=== PATIENT | male | born 1945 | race African-American/Black ===

== ENCOUNTER 2016-04-25 10:23 | Inpatient (IN) | payer OTHER ==
[2016-04-25 10:54] VITALS: BMI 32.1
--- NOTE | 2016-04-25 12:08 | HP ---
CIWA Score - CIWA Score Nausea/Vomitin-No Nausea/No Vomiting Muscle Tremors: 4-Moderate,w/Arms Extend Anxiety: 4-Mod. Anxious/Guarded Agitation: 4-Moderately Restless Paroxysmal Sweats: 1-Minimal Palms Moist Orientation: 0-Oriented Tacttile Disturbances: 3-Moderate Itch/Numb/Burn Auditory Disturbances: 0-None Visual Disturbances: 0-None Headache: 0-None Present CIWA-Ar Total Score: 16 Admission ROS BHS - HPI Chief Complaint: DETOX TX FOR ALCOHOL DEPENDENCE Allergies/Adverse Reactions: Allergies Allergy/AdvReac Type Severity Reaction Status Date / Time No Known Allergies Allergy Verified 04/25/16 11:11 History of Present Illness: 70 Y/O AA/MALE WITH A HX OF ALCOHOL AND COCAINE DEPENDENCE SEEKING DETOX [place] Exam Limitations: No Limitations - Ebola screening Have you traveled outside of the country in the last 21 days: No Have you had contact with anyone from an Ebola affected area: No Have you been sick,other than usual withdrawal symptoms: No Do you have a fever: No - Review of Systems Constitutional: Changes in sleep EENT: reports: Blurred Vision (WEARS GLASSES), Tearing, Nose Congestion, Dental Problems (UPPER/LOWER DENTURES; LOST BOTTOM DENTURES.) Respiratory: reports: Shortness of Breath (HX ASTHMA), Wheezing Cardiac: reports: No Symptoms Reported GI: reports: Constipated, Abdominal cramping : reports: No Symptoms Reported Musculoskeletal: reports: Back Pain, Joint Pain, Muscle Pain Integumentary: reports: No Symptoms Reported Neuro: reports: Numbness (LEFT ARM), Tingling, Tremors Endocrine: reports: No Symptoms Reported Hematology: reports: No Symptoms Reported Psychiatric: reports: Orientated x3, Anxious Other Systems: Reviewed and Negative Patient History - Patient Medical History Hx Anemia: No Hx Asthma: Yes (MDI) Hx Chronic Obstructive Pulmonary Disease (COPD): No Hx Cancer: No Hx Cardiac Disorders: No Hx Congestive Heart Failure: No Hx Hypertension: Yes (on meds.) Hx Hypercholesterolemia: No Hx Pacemaker: No HX Cerebrovascular Accident: No Hx Seizures: No Hx Dementia: No Hx Diabetes: No Hx Gastrointestinal Disorders: Yes (GERD ) Hx Liver Disease: No Hx Genitourinary Disorders: No Hx Sexually Transmitted Disorders: No Hx Renal Disease (ESRD): No Hx Thyroid Disease: No Hx Human Immunodeficiency Virus (HIV): Yes (SINCE 1990; ON MEDS; HX ORAL THRUSH. ) Hx Hepatitis C: Yes (TREATED WITH HARVONI ;UNDETECTABLE) Hx Depression: Yes Hx Suicide Attempt: No (DENIES) Hx Bipolar Disorder: No Hx Schizophrenia: No - Patient Surgical History Past Surgical History: Yes Hx Neurologic Surgery: No Hx Cataract Extraction: No Hx Cardiac Surgery: No Hx Lung Surgery: No Hx Breast Surgery: No Hx Breast Biopsy: No Hx Abdominal Surgery: No Hx Appendectomy: No Hx Cholecystectomy: No Hx Genitourinary Surgery: No Hx Section: No Hx Orthopedic Surgery: Yes (left leg in 1980) Anesthesia Reaction: No - PPD History Previous Implant?: Yes Documented Results: Positive w/proof Implanted On Prior [facility] Admission?: No Results: CXR neg PPD to be Administered?: No - Reproductive History Patient is a Female of Child Bearing Age (11 -55 yrs old): No (MALE) - Smoking Cessation Smoking history: Never smoked Have you smoked in the past 12 months: No Hx Chewing Tobacco Use: No - Substance & Tx. History Hx Alcohol Use: Yes (BEER) Hx Substance Use: Yes (HEROIN/COCAINE) Substance Use Type: Alcohol, Cocaine, Heroin Hx Substance Use Treatment: Yes ([facility]-DETOX) - Substances Abused Alcohol Route: Oral Frequency: Daily Amount used: 3-4 22 OZ BEERS Age of first use: 32 Date of Last Use: 04/24/16 Cocaine Route: Smoking Frequency: Daily Amount used: $50 AND UP Age of first use: 25 Date of Last Use: 04/24/16 Heroin Route: Inhalation Frequency: 1-2 times per week Amount used: 4-6 BAGS Age of first use: 21 Date of Last Use: 04/23/16 Family Disease History - Family Disease History Family Disease History: CA: Mother (COLON CANCER ), Other: Father ( ) Admission Physical Exam BHS - Vital Signs Vital Signs: Vital Signs - 24 hr 04/25/16 10:52 Temperature 97.2 F L Pulse Rate 68 Respiratory 18 Rate Blood Pressure 144/77 - Physical General Appearance: Yes: Moderate Distress, Irritable, Anxious HEENTM: Yes: EOMI, Normocephalic, MICHAEL, Pharynx Normal Respiratory: Yes: Chest Non-Tender, Lungs Clear, Normal Breath Sounds, No Respiratory Distress Neck: Yes: Supple, Trachea in good position Breast: Yes: Breast Exam Deferred Cardiology: Yes: Regular Rhythm, Regular Rate, S1, S2 Abdominal: Yes: Normal Bowel Sounds, Non Tender, Soft, Protuberent Genitourinary: Yes: Other (N/C) Back: Yes: Within Normal Limits Musculoskeletal: Yes: full range of Motion, Gait Steady Extremities: Yes: Normal Range of Motion, Non-Tender, Tremors 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 (2) Asthma Current Visit: Yes Status: Chronic Qualifiers: Asthma severity: mild intermittent Asthma complication type: uncomplicated Qualified Code(s): J45.20 - Mild intermittent asthma, uncomplicated (3) GERD (gastroesophageal reflux disease) Current Visit: Yes Status: Chronic Qualifiers: Esophagitis presence: without esophagitis Qualified Code(s): K21.9 - Gastro-esophageal reflux disease without esophagitis Comment: . (4) HIV (human immunodeficiency virus infection) Current Visit: Yes Status: Chronic Comment: . (5) History of hepatitis C Current Visit: Yes Status: Resolved Comment: TREATED WITH HARVONI AND PT STATES UNDETECTABLE. (6) Hypertension Current Visit: Yes Status: Chronic Qualifiers: Hypertension type: essential hypertension Qualified Code(s): I10 - Essential (primary) hypertension Comment: . 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
[2016-04-25] MEDS ORDERED: MAG HYDROX/AL HYDROX/SIMETH 30 ML UNIT-DOSE CUP PO PRN (12:22)
[2016-04-25] MEDS ORDERED: MAGNESIUM CITRATE 300 ML BOTTLE PO PRN (12:22)
[2016-04-25] MEDS ORDERED: ACETAMINOPHEN 325 MG TABLET (FP) PO PRN (12:22)
[2016-04-25] MEDS ORDERED: LOPERAMIDE HCL 2 MG CAPSULE PO PRN (12:22)
[2016-04-25] MEDS ORDERED: chlordiazePOXIDE HCL 25 MG CAPSULE PO PRN (12:22)
[2016-04-25] MEDS ORDERED: guaiFENesin/D-METHORPHAN HB 10 ML UNIT-DOSE CUPS PO PRN (12:22)
[2016-04-25] MEDS ORDERED: P-EPHED 60MG/TRIPROLIDI 2.5MG TABLET PO PRN (12:22)
[2016-04-25] MEDS ORDERED: hydrOXYzine PAMOATE 25 MG CAPSULE (FP) PO PRN (12:22)
[2016-04-25] MEDS ORDERED: MAGNESIUM HYDROX 2400MG/30ML ORAL SUSPENSION 30 ML CUP PO PRN (12:22)
[2016-04-25] MEDS ORDERED: IBUPROFEN 400 MG TABLET (FP) PO PRN (12:22)
[2016-04-25] MEDS ORDERED: ALBUTEROL SO4 6.7 GM HFA INHALER IH PRN (12:25)
[2016-04-25] MEDS ORDERED: chlordiazePOXIDE HCL 25 MG CAPSULE PO ONE (12:50)
[2016-04-25] MEDS: chlordiazePOXIDE HCL 25 MG CAPSULE PO SCH ×2 (17:32→22:26)
[2016-04-25] MEDS ORDERED: TAMSULOSIN HCL 0.4 MG CAP.ER.24H (FP) PO SCH (22:00)
[2016-04-25] MEDS: THIAMINE HCL 100 MG TABLET (FP) PO SCH (22:24)
[2016-04-25] MEDS: FLUTICASONE PROP 0.05% 16 GM NASAL SPRAY NS SCH (22:24)
[2016-04-25] MEDS: MONTELUKAST NA 10 MG TABLET PO SCH (22:25)
[2016-04-25] MEDS: diphenhydrAMINE HCL 50 MG CAPSULE PO PRN (22:26)
[2016-04-26] MEDS: chlordiazePOXIDE HCL 25 MG CAPSULE PO SCH ×4 (05:40→22:17)
[2016-04-26] MEDS ORDERED: METHADONE HCL 40 MG DISPERSABLE TABLET PO ONE (09:33)
[2016-04-26] MEDS ORDERED: PATIENT'S OWN MEDICATION (NON-FORMULARY) (Calcium Carb/Vitamin D3/Vit K1 [Calcium + D Soft PO SCH (10:00)
[2016-04-26 10:12] LABS: URINE APPEARANCE CLEAR; URINE BILIRUBIN NEGATIVE (NEGATIVE); URINE BLOOD NEGATIVE (NEGATIVE); URINE COLOR LTYELLOW; URINE GLUCOSE (UA) NEGATIVE (NEGATIVE); URINE KETONE NEGATIVE (NEGATIVE); URINE LEUK ESTERASE NEGATIVE (NEGATIVE); URINE NITRITE NEGATIVE (NEGATIVE); URINE PROTEIN NEGATIVE (NEGATIVE); URINE UROBILINOGEN NEGATIVE E.U./dl (0.2-1.0)
[2016-04-26 10:14] LABS: ALBUMIN 3.5 g/dl (3.4-5.0); ANION GAP 10 (8-16); CALCIUM 8.6 mg/dL (8.5-10.1); CO2 30 mmol/L (21-32); GLUCOSE,RANDOM 91 mg/dL (74-106); SGOT/AST 19 U/L (15-37); SGPT/ALT 18 U/L (12-78)
[2016-04-26 10:15] LABS: ALK PHOS 89 U/L (45-117); BILIRUBIN,TOTAL 0.3 mg/dL (0.2-1.0); CREATININE 0.8 mg/dL (0.7-1.3); TOT PROT 6.7 g/dl (6.4-8.2)
--- NOTE | 2016-04-26 10:24 | CONSULT ---
[facility] Psychiatric Consult - Data Date of interview: 04/26/16 Admission source: [facility] Identifying data: This is 70 years old male with no psychiatric hospitalization history intoxciated with: Heroin, Cocaine and Alcohol Substance Abuse History: - Smoking Cessation. Smoking history: Never smoked. Have you smoked in the past 12 months: No. Hx Chewing Tobacco Use: No. - Substance & Tx. History. Hx Alcohol Use: Yes (BEER). Hx Substance Use: Yes ( HEROIN/COCAINE). Substance Use Type: Alcohol, Cocaine, Heroin. Hx Substance Use Treatment: Yes ([facility]-DETOX). - Substances Abused. Alcohol. Route: Oral. Frequency: Daily. Amount used: 3-4 22 OZ BEERS. Age of first use: 32. Date of Last Use: 04/24/16. Cocaine. Route: Smoking. Frequency: Daily. Amount used: $50 AND UP. Age of first use: 25. Date of Last Use: 04/24/16. * * Heroin. Route: Inhalation. Frequency: 1-2 times per week. Amount used: 4-6 BAGS. Age of first use: 21. Date of Last Use: 04/23/16 Medical History: IVC Filter placement history, Gastritis history. BPH, GERD, HEP C, HIV Psychiatric History: Denies, as per comp[uter has been on Zoloft 100mg poqd, refusing to restart Physical/Sexual Abuse/Trauma History: Denies, unclear Additional Comment: Observation Mental Status Exam - Mental Status Exam Alert and Oriented to: Person Cognitive Function: Fair Patient Appearance: Unkempt Mood: Nervous, Withdrawn Affect: Inappropriate Patient Behavior: Suspicious, Distractible, Talkative Speech Pattern: Excessive Voice Loudness: Mildly Loud Thought Process: Circumstantial Thought Disorder: Being Controlled Hallucinations: Denies Suicidal Ideation: Denies Homicidal Ideation: Denies Insight/Judgement: Fair Sleep: Difficulty falling asleep Appetite: Weight gain Muscle strength/Tone: Mild Hypertonicity Gait/Station: Shuffling Additional Comments: Observation. Detox Care [facility] Psychiatric Findings - Problem List ([place] 1, 2,3) (1) Alcohol dependence with uncomplicated withdrawal Current Visit: Yes Status: Acute (2) Cocaine dependence, uncomplicated Current Visit: Yes Status: Acute (3) Drug-induced mood disorder Current Visit: Yes Status: Acute - Initial Treatment Plan Initial Treatment Plan: Observation. Detox Care [facility]
[2016-04-26 10:25] LABS: MCH 27.3 pg (25.7-33.7); MCHC 33.3 g/dl (32.0-35.9); MEAN CELL VOLUME 81.9 fl (80-96); MEAN PLT VOLUME 8.8 fl (7.5-11.1); PLATELET COUNT 216 K/MM3 (134-434); RDW 14.7 % (11.9-15.9); WHITE BLOOD COUNT 9.7 K/mm3 (4.0-10.0)
[2016-04-26] MEDS: CALCIUM 250MG/VIT-D 125 UNITS 1 COMBO TABLET PO SCH (10:40)
[2016-04-26] MEDS: PANTOPRAZOLE 40 MG TABLET (FP) PO SCH (10:40)
[2016-04-26] MEDS: LISINOPRIL 5 MG TABLET (FP) PO SCH (10:40)
[2016-04-26] MEDS: HYDROCHLOROTHIAZIDE 25 MG TABLET (FP) PO SCH (10:40)
[2016-04-26] MEDS: FLUTICASONE PROP 0.05% 16 GM NASAL SPRAY NS SCH ×2 (10:40→22:18)
[2016-04-26] MEDS: RITONAVIR 100 MG TABLET PO SCH (10:40)
[2016-04-26] MEDS: DARUNAVIR ETHANOLATE 800 MG TAB PO SCH (10:40)
[2016-04-26] MEDS: PRENATAL VITAMINS W/ FOLIC ACID TABLET (FP) PO SCH (10:40)
[2016-04-26] MEDS: EMTRICITABINE 200MG/TENOFOVIR 300MG PO SCH (10:41)
--- NOTE | 2016-04-26 10:49 | PN ---
[facility] CIWA - CIWA Score Nausea/Vomitin-No Nausea/No Vomiting Muscle Tremors: 4-Moderate,w/Arms Extend Anxiety: 4-Mod. Anxious/Guarded Agitation: 4-Moderately Restless Paroxysmal Sweats: 1-Minimal Palms Moist Orientation: 0-Oriented Tacttile Disturbances: 3-Moderate Itch/Numb/Burn Auditory Disturbances: 0-None Visual Disturbances: 0-None Headache: 0-None Present CIWA-Ar Total Score: 16 BHS Progress Note (SOAP) Subjective: ANXIETY,TREMORS,SWEATS, INTERMITTENT SLEEP Objective: 04/26/16 10:49 Vital Signs Temperature 96.8 F L 04/26/16 10:18 Pulse Rate 66 04/26/16 10:18 Respiratory Rate 18 04/26/16 10:18 Blood Pressure 148/77 04/26/16 10:18 O2 Sat by Pulse Oximetry (%) Laboratory Last Values WBC 9.7 K/mm3 (4.0-10.0) D 04/26/16 05:45 RBC 4.38 M/mm3 (4.00-5.60) 04/26/16 05:45 Hgb 12.0 GM/dL (11.7-16.9) D 04/26/16 05:45 Hct 35.9 % (35.4-49) D 04/26/16 05:45 MCV 81.9 fl (80-96) 04/26/16 05:45 MCHC 33.3 g/dl (32.0-35.9) 04/26/16 05:45 RDW 14.7 % (11.9-15.9) 04/26/16 05:45 Plt Count 216 K/MM3 (134-434) D 04/26/16 05:45 MPV 8.8 fl (7.5-11.1) 04/26/16 05:45 Sodium 135 mmol/L (136-145) L 04/26/16 05:45 Potassium 3.5 mmol/L (3.5-5.1) 04/26/16 05:45 Chloride 95 mmol/L (98-107) L 04/26/16 05:45 Carbon Dioxide 30 mmol/L (21-32) 04/26/16 05:45 Anion Gap 10 (8-16) 04/26/16 05:45 BUN 12 mg/dL (7-18) 04/26/16 05:45 Creatinine 0.8 mg/dL (0.7-1.3) D 04/26/16 05:45 Creat Clearance w eGFR > 60 (>60) 04/26/16 05:45 Random Glucose 91 mg/dL (74-106) D 04/26/16 05:45 Calcium 8.6 mg/dL (8.5-10.1) 04/26/16 05:45 Total Bilirubin 0.3 mg/dL (0.2-1.0) D 04/26/16 05:45 AST 19 U/L (15-37) 04/26/16 05:45 ALT 18 U/L (12-78) D 04/26/16 05:45 Alkaline Phosphatase 89 U/L (45-117) D 04/26/16 05:45 Total Protein 6.7 g/dl (6.4-8.2) 04/26/16 05:45 Albumin 3.5 g/dl (3.4-5.0) 04/26/16 05:45 Urine Color Ltyellow 04/26/16 08:00 Urine Appearance Clear 04/26/16 08:00 Urine pH 6.0 (5.0-8.0) 04/26/16 08:00 Ur Specific [place] 1.008 (1.001-1.035) 04/26/16 08:00 Urine Protein Negative (NEGATIVE) 04/26/16 08:00 Urine Glucose (UA) Negative (NEGATIVE) 04/26/16 08:00 Urine Ketones Negative (NEGATIVE) 04/26/16 08:00 Urine Blood Negative (NEGATIVE) 04/26/16 08:00 Urine Nitrite Negative (NEGATIVE) 04/26/16 08:00 Urine Bilirubin Negative (NEGATIVE) 04/26/16 08:00 Urine Urobilinogen Negative E.U./dl (0.2-1.0) 04/26/16 08:00 Ur Leukocyte Esterase Negative (NEGATIVE) 04/26/16 08:00 Assessment: 04/26/16 10:49 WITHDRAWAL SX Plan: CONTINUE DETOX
--- NOTE | 2016-04-26 16:57 | EKG ---
Test Reason : Blood Pressure : / mmHG Vent. Rate : 064 BPM Atrial Rate : 064 BPM P-R Int : 186 ms QRS Dur : 102 ms QT Int : 416 ms P-R-T Axes : 014 014 021 degrees QTc Int : 429 ms POOR DATA QUALITY, INTERPRETATION MAY BE ADVERSELY AFFECTED NORMAL SINUS RHYTHM MINIMAL VOLTAGE CRITERIA FOR LVH, MAY BE NORMAL VARIANT BORDERLINE ECG NO PREVIOUS ECGS AVAILABLE Confirmed by ABDELRAHMAN BARRERA, JESSIE ([id number]) on 04/26/2016 4:57:05 PM Referred By: Eliazar Hicks Confirmed By:JESSIE QUICK MD
[2016-04-26] MEDS: THIAMINE HCL 100 MG TABLET (FP) PO SCH (22:17)
[2016-04-26] MEDS: MONTELUKAST NA 10 MG TABLET PO SCH (22:17)
[2016-04-27] MEDS: chlordiazePOXIDE HCL 25 MG CAPSULE PO SCH ×2 (05:30→10:51)
[2016-04-27] MEDS: METHADONE HCL 40 MG DISPERSABLE TABLET PO SCH (05:30)
[2016-04-27] MEDS: MENTHOL/PHENOL 1 EACH UD MM PRN (05:31)
[2016-04-27] MEDS: DARUNAVIR ETHANOLATE 800 MG TAB PO SCH (10:52)
[2016-04-27] MEDS: EMTRICITABINE 200MG/TENOFOVIR 300MG PO SCH (10:52)
[2016-04-27] MEDS: RITONAVIR 100 MG TABLET PO SCH (10:52)
[2016-04-27] MEDS: LISINOPRIL 5 MG TABLET (FP) PO SCH (10:52)
[2016-04-27] MEDS: HYDROCHLOROTHIAZIDE 25 MG TABLET (FP) PO SCH (10:52)
[2016-04-27] MEDS: PANTOPRAZOLE 40 MG TABLET (FP) PO SCH (10:52)
[2016-04-27] MEDS: PRENATAL VITAMINS W/ FOLIC ACID TABLET (FP) PO SCH (10:52)
[2016-04-27] MEDS: FLUTICASONE PROP 0.05% 16 GM NASAL SPRAY NS SCH ×2 (10:53→22:22)
[2016-04-27] MEDS: CALCIUM 250MG/VIT-D 125 UNITS 1 COMBO TABLET PO SCH (10:53)
--- NOTE | 2016-04-27 11:04 | PN ---
[facility] CIWA - CIWA Score Nausea/Vomitin-No Nausea/No Vomiting Muscle Tremors: 4-Moderate,w/Arms Extend Anxiety: 4-Mod. Anxious/Guarded Agitation: 4-Moderately Restless Paroxysmal Sweats: 1-Minimal Palms Moist Orientation: 0-Oriented Tacttile Disturbances: 3-Moderate Itch/Numb/Burn Auditory Disturbances: 0-None Visual Disturbances: 0-None Headache: 0-None Present CIWA-Ar Total Score: 16 BHS Progress Note (SOAP) Subjective: ANXIETY,SWEATS,TREMORS. Objective: 04/27/16 11:03 Vital Signs Temperature 97.0 F L 04/27/16 09:34 Pulse Rate 66 04/27/16 09:34 Respiratory Rate 18 04/27/16 09:34 Blood Pressure 138/82 04/27/16 09:34 O2 Sat by Pulse Oximetry (%) Laboratory Last Values WBC 9.7 K/mm3 (4.0-10.0) D 04/26/16 05:45 RBC 4.38 M/mm3 (4.00-5.60) 04/26/16 05:45 Hgb 12.0 GM/dL (11.7-16.9) D 04/26/16 05:45 Hct 35.9 % (35.4-49) D 04/26/16 05:45 MCV 81.9 fl (80-96) 04/26/16 05:45 MCHC 33.3 g/dl (32.0-35.9) 04/26/16 05:45 RDW 14.7 % (11.9-15.9) 04/26/16 05:45 Plt Count 216 K/MM3 (134-434) D 04/26/16 05:45 MPV 8.8 fl (7.5-11.1) 04/26/16 05:45 Sodium 135 mmol/L (136-145) L 04/26/16 05:45 Potassium 3.5 mmol/L (3.5-5.1) 04/26/16 05:45 Chloride 95 mmol/L (98-107) L 04/26/16 05:45 Carbon Dioxide 30 mmol/L (21-32) 04/26/16 05:45 Anion Gap 10 (8-16) 04/26/16 05:45 BUN 12 mg/dL (7-18) 04/26/16 05:45 Creatinine 0.8 mg/dL (0.7-1.3) D 04/26/16 05:45 Creat Clearance w eGFR > 60 (>60) 04/26/16 05:45 Random Glucose 91 mg/dL (74-106) D 04/26/16 05:45 Calcium 8.6 mg/dL (8.5-10.1) 04/26/16 05:45 Total Bilirubin 0.3 mg/dL (0.2-1.0) D 04/26/16 05:45 AST 19 U/L (15-37) 04/26/16 05:45 ALT 18 U/L (12-78) D 04/26/16 05:45 Alkaline Phosphatase 89 U/L (45-117) D 04/26/16 05:45 Total Protein 6.7 g/dl (6.4-8.2) 04/26/16 05:45 Albumin 3.5 g/dl (3.4-5.0) 04/26/16 05:45 Urine Color Ltyellow 04/26/16 08:00 Urine Appearance Clear 04/26/16 08:00 Urine pH 6.0 (5.0-8.0) 04/26/16 08:00 Ur Specific [place] 1.008 (1.001-1.035) 04/26/16 08:00 Urine Protein Negative (NEGATIVE) 04/26/16 08:00 Urine Glucose (UA) Negative (NEGATIVE) 04/26/16 08:00 Urine Ketones Negative (NEGATIVE) 04/26/16 08:00 Urine Blood Negative (NEGATIVE) 04/26/16 08:00 Urine Nitrite Negative (NEGATIVE) 04/26/16 08:00 Urine Bilirubin Negative (NEGATIVE) 04/26/16 08:00 Urine Urobilinogen Negative E.U./dl (0.2-1.0) 04/26/16 08:00 Ur Leukocyte Esterase Negative (NEGATIVE) 04/26/16 08:00 RPR Titer Nonreactive (NONREACTIVE) 04/26/16 05:45 Assessment: 04/27/16 11:03 WITHDRAWAL SX Plan: CONTINUE DETOX
[2016-04-27] MEDS: chlordiazePOXIDE 5 MG CAPSULE PO SCH ×2 (17:00→22:22)
[2016-04-27] MEDS: MONTELUKAST NA 10 MG TABLET PO SCH (22:22)
[2016-04-27] MEDS: THIAMINE HCL 100 MG TABLET (FP) PO SCH (22:22)
[2016-04-27] MEDS: diphenhydrAMINE HCL 50 MG CAPSULE PO PRN (22:23)
[2016-04-28] MEDS: chlordiazePOXIDE 5 MG CAPSULE PO SCH ×2 (05:36→10:40)
[2016-04-28] MEDS: METHADONE HCL 40 MG DISPERSABLE TABLET PO SCH (05:36)
[2016-04-28] MEDS: MENTHOL/PHENOL 1 EACH UD MM PRN ×4 (05:39→22:16)
[2016-04-28] MEDS: PRENATAL VITAMINS W/ FOLIC ACID TABLET (FP) PO SCH (10:40)
[2016-04-28] MEDS: HYDROCHLOROTHIAZIDE 25 MG TABLET (FP) PO SCH (10:40)
[2016-04-28] MEDS: DARUNAVIR ETHANOLATE 800 MG TAB PO SCH (10:40)
[2016-04-28] MEDS: PANTOPRAZOLE 40 MG TABLET (FP) PO SCH (10:40)
[2016-04-28] MEDS: LISINOPRIL 5 MG TABLET (FP) PO SCH (10:40)
[2016-04-28] MEDS: EMTRICITABINE 200MG/TENOFOVIR 300MG PO SCH (10:41)
[2016-04-28] MEDS: FLUTICASONE PROP 0.05% 16 GM NASAL SPRAY NS SCH ×2 (10:41→22:13)
[2016-04-28] MEDS: RITONAVIR 100 MG TABLET PO SCH (10:42)
[2016-04-28] MEDS: CALCIUM 250MG/VIT-D 125 UNITS 1 COMBO TABLET PO SCH (10:42)
--- NOTE | 2016-04-28 11:39 | PN ---
BHS Progress Note (SOAP) Subjective: back pain, cough Objective: 04/28/16 11:36 Vital Signs - 8 hr 04/28/16 04/28/16 06:31 10:59 Temperature 98.1 F 95.8 F L Pulse Rate 64 68 Respiratory 16 19 Rate Blood Pressure 134/88 136/84 Laboratory Last Values WBC 9.7 K/mm3 (4.0-10.0) D 04/26/16 05:45 RBC 4.38 M/mm3 (4.00-5.60) 04/26/16 05:45 Hgb 12.0 GM/dL (11.7-16.9) D 04/26/16 05:45 Hct 35.9 % (35.4-49) D 04/26/16 05:45 MCV 81.9 fl (80-96) 04/26/16 05:45 MCHC 33.3 g/dl (32.0-35.9) 04/26/16 05:45 RDW 14.7 % (11.9-15.9) 04/26/16 05:45 Plt Count 216 K/MM3 (134-434) D 04/26/16 05:45 MPV 8.8 fl (7.5-11.1) 04/26/16 05:45 Sodium 135 mmol/L (136-145) L 04/26/16 05:45 Potassium 3.5 mmol/L (3.5-5.1) 04/26/16 05:45 Chloride 95 mmol/L (98-107) L 04/26/16 05:45 Carbon Dioxide 30 mmol/L (21-32) 04/26/16 05:45 Anion Gap 10 (8-16) 04/26/16 05:45 BUN 12 mg/dL (7-18) 04/26/16 05:45 Creatinine 0.8 mg/dL (0.7-1.3) D 04/26/16 05:45 Creat Clearance w eGFR > 60 (>60) 04/26/16 05:45 Random Glucose 91 mg/dL (74-106) D 04/26/16 05:45 Calcium 8.6 mg/dL (8.5-10.1) 04/26/16 05:45 Total Bilirubin 0.3 mg/dL (0.2-1.0) D 04/26/16 05:45 AST 19 U/L (15-37) 04/26/16 05:45 ALT 18 U/L (12-78) D 04/26/16 05:45 Alkaline Phosphatase 89 U/L (45-117) D 04/26/16 05:45 Total Protein 6.7 g/dl (6.4-8.2) 04/26/16 05:45 Albumin 3.5 g/dl (3.4-5.0) 04/26/16 05:45 Urine Color Ltyellow 04/26/16 08:00 Urine Appearance Clear 04/26/16 08:00 Urine pH 6.0 (5.0-8.0) 04/26/16 08:00 Ur Specific [place] 1.008 (1.001-1.035) 04/26/16 08:00 Urine Protein Negative (NEGATIVE) 04/26/16 08:00 Urine Glucose (UA) Negative (NEGATIVE) 04/26/16 08:00 Urine Ketones Negative (NEGATIVE) 04/26/16 08:00 Urine Blood Negative (NEGATIVE) 04/26/16 08:00 Urine Nitrite Negative (NEGATIVE) 04/26/16 08:00 Urine Bilirubin Negative (NEGATIVE) 04/26/16 08:00 Urine Urobilinogen Negative E.U./dl (0.2-1.0) 04/26/16 08:00 Ur Leukocyte Esterase Negative (NEGATIVE) 04/26/16 08:00 RPR Titer Nonreactive (NONREACTIVE) 04/26/16 05:45 Labs noted Lungs clear, no wheezes or crackles Assessment: 04/28/16 11:37 withdrawal sx, asthma Plan: continue detox, continue nebulizer treatments
[2016-04-28] MEDS: chlordiazePOXIDE HCL 10 MG CAPSULE PO SCH ×2 (17:18→22:14)
[2016-04-28] MEDS: THIAMINE HCL 100 MG TABLET (FP) PO SCH (22:13)
[2016-04-28] MEDS: diphenhydrAMINE HCL 50 MG CAPSULE PO PRN (22:14)
[2016-04-28] MEDS: MONTELUKAST NA 10 MG TABLET PO SCH (22:14)
[2016-04-29] MEDS: METHADONE HCL 40 MG DISPERSABLE TABLET PO SCH (05:13)
[2016-04-29] MEDS: chlordiazePOXIDE HCL 10 MG CAPSULE PO SCH (05:13)
[2016-04-29 06:30] VITALS: BP 136/84; PULSE 67; TEMP 97.4
--- NOTE | 2016-04-29 11:09 | DS ---
[facility] Detox Discharge Summary Admission Date: 04/25/16 Discharge Date: 04/29/16 - History Present History: Alcohol Dependence, Cocaine Dependence, Opioid Dependence, MMTP Pertinent Past History: Asthma Hypertension GERD HIV Hep - Treated, Undected - Physical Exam Results Vital Signs: Vital Signs Temperature 97.4 F L 04/29/16 06:27 Pulse Rate 67 04/29/16 06:27 Respiratory Rate 16 04/29/16 06:27 Blood Pressure 136/84 04/29/16 06:27 O2 Sat by Pulse Oximetry (%) Pertinent Admission Physical Exam Findings: Withdrawal Symptoms Laboratory Last Values WBC 9.7 K/mm3 (4.0-10.0) D 04/26/16 05:45 RBC 4.38 M/mm3 (4.00-5.60) 04/26/16 05:45 Hgb 12.0 GM/dL (11.7-16.9) D 04/26/16 05:45 Hct 35.9 % (35.4-49) D 04/26/16 05:45 MCV 81.9 fl (80-96) 04/26/16 05:45 MCHC 33.3 g/dl (32.0-35.9) 04/26/16 05:45 RDW 14.7 % (11.9-15.9) 04/26/16 05:45 Plt Count 216 K/MM3 (134-434) D 04/26/16 05:45 MPV 8.8 fl (7.5-11.1) 04/26/16 05:45 Sodium 135 mmol/L (136-145) L 04/26/16 05:45 Potassium 3.5 mmol/L (3.5-5.1) 04/26/16 05:45 Chloride 95 mmol/L (98-107) L 04/26/16 05:45 Carbon Dioxide 30 mmol/L (21-32) 04/26/16 05:45 Anion Gap 10 (8-16) 04/26/16 05:45 BUN 12 mg/dL (7-18) 04/26/16 05:45 Creatinine 0.8 mg/dL (0.7-1.3) D 04/26/16 05:45 Creat Clearance w eGFR > 60 (>60) 04/26/16 05:45 Random Glucose 91 mg/dL (74-106) D 04/26/16 05:45 Calcium 8.6 mg/dL (8.5-10.1) 04/26/16 05:45 Total Bilirubin 0.3 mg/dL (0.2-1.0) D 04/26/16 05:45 AST 19 U/L (15-37) 04/26/16 05:45 ALT 18 U/L (12-78) D 04/26/16 05:45 Alkaline Phosphatase 89 U/L (45-117) D 04/26/16 05:45 Total Protein 6.7 g/dl (6.4-8.2) 04/26/16 05:45 Albumin 3.5 g/dl (3.4-5.0) 04/26/16 05:45 Urine Color Ltyellow 04/26/16 08:00 Urine Appearance Clear 04/26/16 08:00 Urine pH 6.0 (5.0-8.0) 04/26/16 08:00 Ur Specific [place] 1.008 (1.001-1.035) 04/26/16 08:00 Urine Protein Negative (NEGATIVE) 04/26/16 08:00 Urine Glucose (UA) Negative (NEGATIVE) 04/26/16 08:00 Urine Ketones Negative (NEGATIVE) 04/26/16 08:00 Urine Blood Negative (NEGATIVE) 04/26/16 08:00 Urine Nitrite Negative (NEGATIVE) 04/26/16 08:00 Urine Bilirubin Negative (NEGATIVE) 04/26/16 08:00 Urine Urobilinogen Negative E.U./dl (0.2-1.0) 04/26/16 08:00 Ur Leukocyte Esterase Negative (NEGATIVE) 04/26/16 08:00 RPR Titer Nonreactive (NONREACTIVE) 04/26/16 05:45 Labs Noted - Treatment Hospital Course: Detox Protocol Followed, Detoxed Safely, Responded well, Discharged Condition Good Patient has Accepted a Rehab Referral to: Declined - Medication Discharge Medications: Ambulatory Orders Emtricitabine/Tenofovir [Truvada -] 1 tab PO DAILY 02/22/15 Hydrochlorothiazide [Hctz -] 25 mg PO DAILY 02/22/15 Montelukast Na [Singulair -] 10 mg PO HS 02/22/15 Multivitamins [Multivit ([facility] Formulary)] 1 tab PO DAILY 02/22/15 Omeprazole [Prilosec (RX)] 40 mg PO DAILY 02/22/15 Darunavir Ethanolate [Prezista -] 800 mg PO DAILY #30 tablet 06/30/15 Fluticasone Prop 0.05% Nasal [Flonase -] 1 spray NS BID #1 spray 06/30/15 Ritonavir [Norvir -] 100 mg PO DAILY #30 tab 06/30/15 Tamsulosin HCl [Flomax -] 0.4 mg PO HS #30 cap.er.24h 06/30/15 Albuterol Sulfate Inhaler - [Ventolin HFA Inhaler -] 2 inh PO Q4H PRN 04/25/16 Calcium Carb/Vitamin D3/Vit K1 [Calcium + D Soft Chewable Tab] 1 each PO DAILY 04/25/16 Cetirizine HCl 10 mg PO DAILY 04/25/16 Lisinopril 5 mg PO DAILY 04/25/16 - Diagnosis (1) Alcohol dependence with uncomplicated withdrawal Status: Acute (2) Cocaine dependence, uncomplicated Status: Acute (3) Drug-induced mood disorder Status: Acute (4) Asthma Status: Chronic Qualifiers: Asthma severity: mild intermittent Asthma complication type: uncomplicated Qualified Code(s): J45.20 - Mild intermittent asthma, uncomplicated (5) GERD (gastroesophageal reflux disease) Status: Chronic Qualifiers: Esophagitis presence: without esophagitis Qualified Code(s): K21.9 - Gastro-esophageal reflux disease without esophagitis (6) HIV (human immunodeficiency virus infection) Status: Chronic (7) Methadone maintenance therapy patient Status: Chronic (8) PPD positive Status: Chronic - AMA Did Patient Leave Against Medical Advice: No
== END 2016-04-29 09:12 | disposition home or self-care (01) | DRG 897 ==
LOC: YASAS 10:23 → Y3N 12:08
PROVIDERS: ADMIT Internal Medicine; ATTEND Internal Medicine
PROC: HZ2ZZZZ Detoxification Services for Substance Abuse Treatment (ICD-10-PCS; principal; 2016-04-25)
DX: F10.230 Alcohol dependence with withdrawal, uncomplicated (principal); F11.20 Opioid dependence, uncomplicated; F14.20 Cocaine dependence, uncomplicated; F19.24 Other psychoactive substance dependence with psychoactive substance-induced mood disorder; J45.20 Mild intermittent asthma, uncomplicated; K21.9 Gastro-esophageal reflux disease without esophagitis; Z21 Asymptomatic human immunodeficiency virus [HIV] infection status; R76.11 Nonspecific reaction to tuberculin skin test without active tuberculosis; I10 Essential (primary) hypertension; N40.0 Benign prostatic hyperplasia without lower urinary tract symptoms; Z95.828 Presence of other vascular implants and grafts
CPT/HCPCS: 36415; 80053; 81003; 85027; 86593; 93005; 93010

== ENCOUNTER 2021-09-13 11:44 | Inpatient (IN) | payer BC, OTHER ==
[2021-09-13 12:08] VITALS: BMI 32.3
[2021-09-13] MEDS ORDERED: MAG HYDROX/AL HYDROX/SIMETH 30 ML UNIT-DOSE CUP PO PRN (12:34)
[2021-09-13] MEDS ORDERED: LOPERAMIDE HCL 2 MG CAPSULE PO PRN (12:34)
[2021-09-13] MEDS ORDERED: MAGNESIUM CITRATE 300 ML BOTTLE PO PRN (12:34)
[2021-09-13] MEDS ORDERED: BENZOCAINE/MENTHOL (CHLORASEPTIC ) LOZENGE MM PRN (12:34)
[2021-09-13] MEDS ORDERED: IBUPROFEN 600 MG TABLET (FP) PO PRN (12:34)
[2021-09-13] MEDS ORDERED: IBUPROFEN 400 MG TABLET (FP) PO PRN (12:34)
[2021-09-13] MEDS ORDERED: ONDANSETRON *ODT* 4 MG TABLET SL PRN (12:34)
[2021-09-13] MEDS ORDERED: BISMUTH SUBSALICYLATE 524 MG/30 ML PO PRN (12:34)
[2021-09-13] MEDS ORDERED: MAGNESIUM HYDROX 2400MG/30ML ORAL SUSPENSION 30 ML CUP PO PRN (12:34)
[2021-09-13] MEDS ORDERED: ACETAMINOPHEN 325 MG TABLET (FP) PO PRN ×2 (12:34)
[2021-09-13] MEDS ORDERED: hydrOXYzine PAMOATE 25 MG CAPSULE (FP) PO SCH (14:00)
[2021-09-13] MEDS ORDERED: LORazepam 1 MG TABLET PO PRN (15:13)
[2021-09-13] MEDS ORDERED: methaDONE HCL 10 MG TABLET (FOR DETOX USE ONLY) PO ONE (15:13)
[2021-09-13] MEDS ORDERED: cloNIDine HCL 0.1 MG TABLET PO PRN (15:13)
[2021-09-13] MEDS ORDERED: ALBUTEROL SO4 HFA INHALER IH PRN (16:26)
[2021-09-13] MEDS: LORazepam 2 MG TABLET PO SCH ×2 (18:19→23:04)
[2021-09-13] MEDS: METHOCARBAMOL 500 MG TABLET PO PRN (18:23)
[2021-09-13] MEDS: DICYCLOMINE HCL 10 MG CAPSULE PO PRN (18:23)
[2021-09-13] MEDS ORDERED: ONDANSETRON *ODT* 4 MG TABLET SL ONE (18:36)
[2021-09-13] MEDS: MELATONIN 5 MG TABLETS PO SCH (23:04)
[2021-09-13] MEDS: THIAMINE HCL 100 MG TABLET (FP) PO SCH (23:04)
[2021-09-14] MEDS: LORazepam 2 MG TABLET PO SCH ×4 (06:45→22:43)
[2021-09-14] MEDS ORDERED: methaDONE HCL 10 MG TABLET (FOR DETOX USE ONLY) ONE (09:41)
[2021-09-14 10:12] LABS: HEMATOCRIT 43.6 % (35.4-49); HEMOGLOBIN 14.2 GM/dL (11.7-16.9); MCH 26.3 pg (25.7-33.7); MCHC 32.5 g/dl (32.0-35.9); PLATELET COUNT 145 10^3/uL (134-434); RBC 5.39 M/mm3 (4.00-5.60); RDW 13.7 % (11.9-15.9); WHITE BLOOD COUNT 3.2 K/mm3 (4.0-10.0)
[2021-09-14] MEDS: LISINOPRIL 10 MG TABLET PO SCH (10:13)
[2021-09-14] MEDS: TAMSULOSIN HCL 0.4 MG CAP PO SCH (10:13)
[2021-09-14] MEDS: DARUNAVIR/COB/EMTRI/TENOF (SYMTUZA) TABLET (NF) PO SCH (10:13)
[2021-09-14] MEDS: METHOCARBAMOL 500 MG TABLET PO PRN ×2 (10:13→22:44)
[2021-09-14] MEDS: PRENATAL VITAMINS W/ FOLIC ACID TABLET (FP) PO SCH (10:14)
[2021-09-14 10:21] LABS: CALCIUM 9.2 mg/dL (8.5-10.1)
[2021-09-14 10:22] LABS: BLOOD UREA NITROGEN 11.4 mg/dL (7-18)
[2021-09-14 10:26] LABS: BILIRUBIN,TOTAL 0.8 mg/dL (0.2-1); TOT PROT 7.2 g/dl (6.4-8.2)
[2021-09-14] MEDS ORDERED: hydrOXYzine PAMOATE 25 MG CAPSULE (FP) PO PRN (10:53)
[2021-09-14] MEDS: DICYCLOMINE HCL 10 MG CAPSULE PO PRN (18:37)
[2021-09-14] MEDS: MELATONIN 5 MG TABLETS PO SCH (22:43)
[2021-09-14] MEDS: THIAMINE HCL 100 MG TABLET (FP) PO SCH (22:43)
[2021-09-15] MEDS: LORazepam 1 MG TABLET PO SCH ×2 (06:02→10:17)
[2021-09-15] MEDS: DARUNAVIR/COB/EMTRI/TENOF (SYMTUZA) TABLET (NF) PO SCH (07:04)
[2021-09-15 09:28] VITALS: BP 147/77; PULSE 68; TEMP 96.9
[2021-09-15] MEDS ORDERED: methaDONE HCL 10 MG TABLET (FOR DETOX USE ONLY) PO ONE (10:00)
[2021-09-15] MEDS: METHOCARBAMOL 500 MG TABLET PO PRN (10:16)
[2021-09-15] MEDS: LISINOPRIL 10 MG TABLET PO SCH (10:16)
[2021-09-15] MEDS: TAMSULOSIN HCL 0.4 MG CAP PO SCH (10:17)
[2021-09-15] MEDS: PRENATAL VITAMINS W/ FOLIC ACID TABLET (FP) PO SCH (10:17)
[2021-09-16] MEDS ORDERED: LORazepam 0.5 MG TABLET PO PRN
[2021-09-16] MEDS ORDERED: LORazepam 0.5 MG TABLET PO SCH (05:00)
[2021-09-17] MEDS ORDERED: LORazepam 0.5 MG TABLET PO ONE (05:00)
[2021-09-17] MEDS ORDERED: methaDONE HCL 10 MG TABLET (FOR DETOX USE ONLY) PO ONE (10:00)
== END 2021-09-15 12:35 | disposition left against medical advice (07) | DRG 894 ==
LOC: YASAS 11:44 → Y3N 13:18
PROVIDERS: ADMIT Allergy & Immunology; ATTEND Family Medicine Addiction Medicine
PROC: HZ2ZZZZ Detoxification Services for Substance Abuse Treatment (ICD-10-PCS; principal; 2021-09-13)
DX: F11.23 Opioid dependence with withdrawal (principal); F14.20 Cocaine dependence, uncomplicated; F10.230 Alcohol dependence with withdrawal, uncomplicated; F19.24 Other psychoactive substance dependence with psychoactive substance-induced mood disorder; Z21 Asymptomatic human immunodeficiency virus [HIV] infection status; I10 Essential (primary) hypertension; K21.9 Gastro-esophageal reflux disease without esophagitis; N40.0 Benign prostatic hyperplasia without lower urinary tract symptoms; R76.11 Nonspecific reaction to tuberculin skin test without active tuberculosis
CPT/HCPCS: 36415; 71046-TC-FY; 80053; 85027; 86780; 87811; 93005; 93010; C9803-CS; U0003; U0005

== ENCOUNTER 2022-08-08 13:43 | Inpatient (IN) | payer OTHER ==
[2022-08-08 14:06] VITALS: BMI 29.6
[2022-08-08] MEDS ORDERED: ALBUTEROL SO4 HFA INHALER IH PRN (16:26)
[2022-08-08] MEDS ORDERED: LOPERAMIDE HCL 2 MG CAPSULE PO PRN (16:57)
[2022-08-08] MEDS ORDERED: AMMONIUM LACTATE 12% LOTION 225 GM BOTTLE TP PRN (16:57)
[2022-08-08] MEDS ORDERED: COLLOIDAL OATMEAL 1 BAR EACH TP PRN (16:57)
[2022-08-08] MEDS ORDERED: NALOXONE HCL (KLOXXADO) 8 MG SPRAY NS PRN (16:57)
[2022-08-08] MEDS ORDERED: guaiFENesin 600 MG TABLET.ER (FP) PO PRN (16:57)
[2022-08-08] MEDS ORDERED: IBUPROFEN 400 MG TABLET (FP) PO PRN (16:57)
[2022-08-08] MEDS ORDERED: BENZOCAINE/MENTHOL (CHLORASEPTIC ) LOZENGE MM PRN (16:57)
[2022-08-08] MEDS ORDERED: MAGNESIUM HYDROX 2400MG/30ML ORAL SUSPENSION 30 ML CUP PO PRN (16:57)
[2022-08-08] MEDS ORDERED: BENZONATATE 200 MG CAPSULE PO PRN (16:57)
[2022-08-08] MEDS ORDERED: ACETAMINOPHEN 325 MG TABLET (FP) PO PRN (16:57)
[2022-08-08] MEDS ORDERED: POLYETHYLENE GLYCOL (HEALTHYLAX) 3350 17 GM PACKET PO PRN (16:57)
[2022-08-08] MEDS ORDERED: MAG HYDROX/AL HYDROX/SIMETH 30 ML UNIT-DOSE CUP PO PRN (16:57)
[2022-08-08] MEDS ORDERED: P-EPHED 60MG/TRIPROLIDI 2.5MG TABLET PO PRN (16:57)
[2022-08-08] MEDS ORDERED: NALOXONE HCL 0.4 MG/ML VIAL IM PRN (16:57)
[2022-08-08] MEDS: LISINOPRIL 10 MG TABLET PO SCH (18:26)
[2022-08-08] MEDS: GABAPENTIN 300 MG CAPSULE PO SCH (21:53)
[2022-08-08] MEDS: THIAMINE HCL 100 MG TABLET (FP) PO SCH (21:54)
[2022-08-08] MEDS: MOMETASONE FUROATE 220 MCG/IH INHALER IH SCH (23:56)
[2022-08-09] MEDS: GABAPENTIN 300 MG CAPSULE PO SCH ×3 (06:50→21:41)
[2022-08-09] MEDS ORDERED: methaDONE HCL 10 MG TABLET PO SCH (07:31)
[2022-08-09] MEDS: METHADONE PO SCH (07:47)
[2022-08-09] MEDS: TAMSULOSIN HCL 0.4 MG CAP PO SCH (09:16)
[2022-08-09] MEDS: MOMETASONE FUROATE 220 MCG/IH INHALER IH SCH ×2 (09:16→21:41)
[2022-08-09] MEDS: LISINOPRIL 10 MG TABLET PO SCH (09:16)
[2022-08-09] MEDS: PRENATAL VITAMINS W/ FOLIC ACID TABLET (FP) PO SCH (09:16)
[2022-08-09] MEDS: PANTOPRAZOLE 20 MG TABLET PO SCH (09:16)
[2022-08-09 11:31] LABS: HEMATOCRIT 41.4 % (35.4-49); MCH 27.5 pg (25.7-33.7); MCHC 33.8 g/dl (32.0-35.9); MEAN CELL VOLUME 81.4 fl (80-96); MEAN PLT VOLUME 8.5 fl (7.5-11.1); PLATELET COUNT 148 10^3/uL (134-434); RBC 5.09 M/mm3 (4.00-5.60); RDW 15.3 % (11.9-15.9); WHITE BLOOD COUNT 4.3 K/mm3 (4.0-10.0)
[2022-08-09 11:36] LABS: POTASSIUM 3.9 mmol/L (3.5-5.1)
[2022-08-09 11:40] LABS: CALCIUM 9.2 mg/dL (8.5-10.1)
[2022-08-09 11:41] LABS: ALBUMIN 3.6 g/dl (3.4-5.0)
[2022-08-09 15:17] LABS: PH,URINE 7.5 (5.0-8.0); URINE APPEARANCE CLEAR; URINE BILIRUBIN NEGATIVE (NEGATIVE); URINE COLOR YELLOW; URINE GLUCOSE (UA) NEGATIVE (NEGATIVE); URINE KETONE NEGATIVE (NEGATIVE); URINE LEUK ESTERASE NEGATIVE (NEGATIVE); URINE NITRITE NEGATIVE (NEGATIVE); URINE PROTEIN NEGATIVE (NEGATIVE); URINE UROBILINOGEN 0.2 mg/dL (0.2-1.0)
[2022-08-09] MEDS: MELATONIN 5 MG TABLETS PO PRN (21:41)
[2022-08-09] MEDS: THIAMINE HCL 100 MG TABLET (FP) PO SCH (21:41)
[2022-08-10] MEDS: GABAPENTIN 300 MG CAPSULE PO SCH ×3 (06:20→21:02)
[2022-08-10] MEDS: METHADONE PO SCH (06:21)
[2022-08-10] MEDS: PRENATAL VITAMINS W/ FOLIC ACID TABLET (FP) PO SCH (10:28)
[2022-08-10] MEDS: LISINOPRIL 10 MG TABLET PO SCH (10:29)
[2022-08-10] MEDS: PANTOPRAZOLE 20 MG TABLET PO SCH (10:29)
[2022-08-10] MEDS: TAMSULOSIN HCL 0.4 MG CAP PO SCH (10:29)
[2022-08-10] MEDS: MOMETASONE FUROATE 220 MCG/IH INHALER IH SCH ×2 (10:30→21:03)
[2022-08-10] MEDS: MELATONIN 5 MG TABLETS PO PRN (21:02)
[2022-08-10] MEDS: THIAMINE HCL 100 MG TABLET (FP) PO SCH (21:02)
[2022-08-11] MEDS: METHADONE PO SCH (06:15)
[2022-08-11] MEDS: GABAPENTIN 300 MG CAPSULE PO SCH ×3 (06:45→21:44)
[2022-08-11 07:13] VITALS: RESP 18
[2022-08-11] MEDS: LISINOPRIL 10 MG TABLET PO SCH (09:28)
[2022-08-11] MEDS: PANTOPRAZOLE 20 MG TABLET PO SCH (09:28)
[2022-08-11] MEDS: TAMSULOSIN HCL 0.4 MG CAP PO SCH (09:28)
[2022-08-11] MEDS: PRENATAL VITAMINS W/ FOLIC ACID TABLET (FP) PO SCH (09:28)
[2022-08-11] MEDS: MOMETASONE FUROATE 220 MCG/IH INHALER IH SCH ×2 (09:29→21:45)
[2022-08-11] MEDS: MELATONIN 5 MG TABLETS PO PRN (21:44)
[2022-08-11] MEDS: THIAMINE HCL 100 MG TABLET (FP) PO SCH (21:44)
[2022-08-12] MEDS: METHADONE PO SCH (05:53)
[2022-08-12] MEDS: GABAPENTIN 300 MG CAPSULE PO SCH (05:54)
[2022-08-12 08:02] VITALS: TEMP 97.6
[2022-08-12] MEDS: LISINOPRIL 10 MG TABLET PO SCH (09:09)
[2022-08-12] MEDS: MOMETASONE FUROATE 220 MCG/IH INHALER IH SCH (09:09)
[2022-08-12] MEDS: PANTOPRAZOLE 20 MG TABLET PO SCH (09:09)
[2022-08-12] MEDS: TAMSULOSIN HCL 0.4 MG CAP PO SCH (09:09)
[2022-08-12] MEDS: PRENATAL VITAMINS W/ FOLIC ACID TABLET (FP) PO SCH (09:09)
[2022-08-12 09:18] VITALS: BP 143/78; PULSE 74
== END 2022-08-12 13:10 | disposition left against medical advice (07) | DRG 894 ==
LOC: YASAS 13:43 → Y3W 17:29
PROVIDERS: ADMIT Allergy & Immunology; ATTEND Psychiatry & Neurology Pain Medicine
PROC: HZ42ZZZ Group Counseling for Substance Abuse Treatment, Cognitive-Behavioral (ICD-10-PCS; principal; 2022-08-08)
DX: F10.20 Alcohol dependence, uncomplicated (principal); F14.20 Cocaine dependence, uncomplicated; F11.20 Opioid dependence, uncomplicated; Z21 Asymptomatic human immunodeficiency virus [HIV] infection status; I10 Essential (primary) hypertension; J45.909 Unspecified asthma, uncomplicated; K21.9 Gastro-esophageal reflux disease without esophagitis; M54.50 Low back pain, unspecified; G89.29 Other chronic pain; N40.0 Benign prostatic hyperplasia without lower urinary tract symptoms
CPT/HCPCS: 36415; 80053; 81003; 85027; 86780; C9803-CS; U0003; U0005

== ENCOUNTER 2024-09-09 13:47 | Inpatient (IN) | payer OTHER ==
[2024-09-09 14:22] VITALS: BMI 27.9
[2024-09-09] MEDS ORDERED: POLYETHYLENE GLYCOL (HEALTHYLAX) 3350 17 GM PACKET PO PRN (14:37)
[2024-09-09] MEDS ORDERED: LOPERAMIDE HCL 2 MG CAPSULE PO PRN (14:37)
[2024-09-09] MEDS ORDERED: ACETAMINOPHEN 325 MG TABLET (FP) PO PRN (14:37)
[2024-09-09] MEDS ORDERED: IBUPROFEN 400 MG TABLET (FP) PO PRN (14:37)
[2024-09-09] MEDS ORDERED: guaiFENesin 600 MG TABLET.ER (FP) PO PRN (14:37)
[2024-09-09] MEDS ORDERED: MAG HYDROX/AL HYDROX/SIMETH 30 ML UNIT-DOSE CUP PO PRN (14:37)
[2024-09-09] MEDS ORDERED: NALOXONE (NARCAN) HCL 4 MG/0.1 ML SPRAY NS PRN (14:37)
[2024-09-09] MEDS ORDERED: ALBUTEROL SO4 HFA INHALER IH PRN (16:47)
[2024-09-09] MEDS ORDERED: TUBERCULIN PPD 5 TU/0.1ML SYRINGE (IN PATIENT USE ONLY) ID ONE (18:38)
[2024-09-09 21:00] LABS: URINE APPEARANCE TURBID; URINE BILIRUBIN NEGATIVE (NEGATIVE); URINE COLOR YELLOW; URINE GLUCOSE (UA) NEGATIVE (NEGATIVE); URINE KETONE NEGATIVE (NEGATIVE); URINE LEUK ESTERASE NEGATIVE (NEGATIVE); URINE NITRITE NEGATIVE (NEGATIVE); URINE PROTEIN NEGATIVE (NEGATIVE); URINE UROBILINOGEN 1.0 mg/dL (0.2-1.0)
[2024-09-09] MEDS: MAGNESIUM HYDROX 2400MG/30ML ORAL SUSPENSION 30 ML CUP PO PRN (21:57)
[2024-09-09] MEDS: THIAMINE 100 MG TABLET PO SCH (21:57)
[2024-09-09] MEDS: MELATONIN 5 MG TABLETS PO SCH (21:57)
[2024-09-10] MEDS: PRENATAL VITAMINS W/ FOLIC ACID TABLET (FP) PO SCH (09:06)
[2024-09-10] MEDS: LISINOPRIL 10 MG TABLET PO SCH ×2 (09:07→21:23)
[2024-09-10 12:51] LABS: MCHC 31.4 g/dl (32.3-36.5); MEAN CELL VOLUME 83.2 fl (79.0-92.2); MEAN PLT VOLUME 10.9 fl (9.4-12.4); RDW 13.5 % (12.2-16.6)
[2024-09-10 13:16] LABS: CO2 29.0 mmol/L (21-32); GLUCOSE,RANDOM 97.0 mg/dL (74-106)
[2024-09-10 13:18] LABS: TOT PROT 6.3 g/dl (6.4-8.2)
[2024-09-10 13:19] LABS: ALK PHOS 70.0 U/L (45-117); CREATININE 0.7 mg/dL (0.55-1.3); SGOT/AST 17.0 U/L (15-37); SGPT/ALT 18.0 U/L (13-61)
[2024-09-10] MEDS ORDERED: LISINOPRIL 10 MG TABLET PO SCH (14:00)
[2024-09-10] MEDS: BENZONATATE 200 MG CAPSULE PO PRN (21:31)
[2024-09-11] MEDS: BENZOCAINE/MENTHOL (CHLORASEPTIC ) LOZENGE MM PRN (07:38)
[2024-09-11] MEDS: LISINOPRIL 10 MG TABLET PO ONE (20:13)
[2024-09-17] MEDS ORDERED: guaiFENesin 600 MG TABLET.ER (FP) PO PRN (10:54)
[2024-09-17] MEDS ORDERED: BENZONATATE 200 MG CAPSULE PO PRN (10:55)
[2024-09-17] MEDS: FAMOTIDINE 20 MG TABLET PO SCH (11:37)
[2024-09-17] MEDS: FUROSEMIDE 20 MG TABLET (FP) PO SCH (11:37)
[2024-09-17] MEDS: AZITHROMYCIN 250 MG TABLET PO ONE (13:52)
[2024-09-17] MEDS: BACLOFEN 10 MG TABLET (FP) PO SCH (21:23)
[2024-09-17] MEDS: IBUPROFEN 600 MG TABLET (FP) PO PRN (22:22)
[2024-09-18] MEDS: AZITHROMYCIN 250 MG TABLET PO SCH (10:24)
[2024-09-30] MEDS: MELATONIN 5 MG TABLETS PO SCH (21:27)
[2024-10-06 07:36] VITALS: PULSE 68; RESP 17; TEMP 97.8
[2024-10-06 08:53] VITALS: BP 154/77
== END 2024-10-06 09:16 | disposition home or self-care (01) | DRG 895 ==
LOC: YASAS 13:47 → Y3NR 15:55 → Y3E 09-10 10:34
PROVIDERS: ADMIT Psychiatry & Neurology Pain Medicine; ATTEND Psychiatry & Neurology Pain Medicine
PROC: HZ42ZZZ Group Counseling for Substance Abuse Treatment, Cognitive-Behavioral (ICD-10-PCS; principal; 2024-09-09)
DX: F14.20 Cocaine dependence, uncomplicated (principal); F11.20 Opioid dependence, uncomplicated; F19.24 Other psychoactive substance dependence with psychoactive substance-induced mood disorder; F32.A Depression, unspecified; Z21 Asymptomatic human immunodeficiency virus [HIV] infection status; I10 Essential (primary) hypertension; K21.9 Gastro-esophageal reflux disease without esophagitis; J45.20 Mild intermittent asthma, uncomplicated; J06.9 Acute upper respiratory infection, unspecified; M54.50 Low back pain, unspecified; G89.29 Other chronic pain; R60.0 Localized edema; Z86.19 Personal history of other infectious and parasitic diseases
CPT/HCPCS: 0241U-QW; 36415; 71046-TC-FY; 80053; 81003; 85027; 86780; 93005; 93010; J0475